=== PATIENT | female | born 2000 | race Caucasian/White ===

== ENCOUNTER 2022-02-06 05:30 | Inpatient (IN) | payer BC ==
[2022-02-09] MEDS ORDERED: Ibuprofen 800 MG TAB PO PRN (12:02)
[2022-02-09] MEDS ORDERED: Ondansetron PF 4 MG/2 ML Vial IVP PRN (12:02)
[2022-02-09] MEDS ORDERED: Lidocaine 1% (PF) 30 ML VIAL SC PRN (12:02)
[2022-02-09] MEDS ORDERED: hydrALAZINE 20 MG/ML VIAL SLOW IVP PRN (12:02)
[2022-02-09] MEDS ORDERED: HYDROcodone/Acetaminophen 5/325 mg Tablet PO PRN ×2 (12:02)
[2022-02-09] MEDS ORDERED: Promethazine HCl 25 MG/ML VIAL IM PRN (12:02)
[2022-02-09] MEDS ORDERED: Butorphanol Tartrate 1 MG/ML VIAL SLOW IVP PRN (12:02)
[2022-02-09] MEDS ORDERED: Misoprostol 200 MCG TAB PR PRN (12:02)
[2022-02-09] MEDS ORDERED: NS w/ Oxytocin 30 units 500 ML IV SCH ×2 (12:15)
[2022-02-09] MEDS ORDERED: Lactated Ringer's 1,000 ML IV SCH (12:15)
[2022-02-10] MEDS ORDERED: Penicillin G Potassium 5 MILL.UNITS in Sodium Chloride 0.9% 100 ML IVPB SCH (05:30)
[2022-02-10 05:40] VITALS: BMI 25.0
[2022-02-10] MEDS ORDERED: Bupivacaine/Epinephrine 0.25% 30 ML VIAL ONE (06:00)
[2022-02-10 06:11] LABS: Hemoglobin 11.7 g/dL (12.0-15.5); Mean Corpuscular HGB CONC 35.5 g/dL (32.0-36.0); Mean Corpuscular Hemoglobin 32.9 pg (27.0-33.0); Mean Corpuscular Volume 92.7 fl (81.6-98.3); Mean Platelet Volume 11.1 fl (7.4-10.4); Platelet Count 268 10x3/uL (150-450); RBC Distribution Width 12.8 % (11.5-14.5); Red Blood Cell (RBC) Count 3.56 10x6/uL (3.90-5.03); White Blood Cell (WBC) Count 7.3 10x3/uL (3.5-10.5)
[2022-02-10 06:46] LABS: HBSAg Index 0.21 S/CO (0-0.99); Hep B Surf Ag Non-Reactive S/CO (NonReactive)
[2022-02-10 06:47] LABS: Syphilis Antibody Nonreactive (Nonreactive); Syphilis Antibody Index 0.05 S/CO (<1.00 Non-Reactive)
[2022-02-10] MEDS ORDERED: Fentanyl 2 mcg/Bup 0.1% Cadd 100 ML ONE (08:44)
[2022-02-10] MEDS ORDERED: Promethazine HCl 25 MG/ML VIAL IM PRN (09:35)
[2022-02-10] MEDS ORDERED: Acetaminophen 325 MG TAB PO PRN (09:35)
[2022-02-10] MEDS ORDERED: Naloxone HCl 0.4 mg/ml Vial IVP PRN ×2 (09:35)
[2022-02-10] MEDS ORDERED: diphenhydrAMINE 50 MG/ML VIAL IVP PRN (09:35)
[2022-02-10] MEDS ORDERED: Ondansetron PF 4 MG/2 ML Vial IVP PRN (09:35)
[2022-02-10] MEDS ORDERED: Lactated Ringer's 500 ML IV PRN (09:35)
[2022-02-10] MEDS ORDERED: Moisturizing Cream (Eucerin) 113 GM JAR TOP PRN (09:35)
[2022-02-10] MEDS ORDERED: ePHEDrine Sulfate 50 MG/10 ML VIAL SLOW IVP PRN (09:35)
[2022-02-10] MEDS ORDERED: Fentanyl 2 mcg/Bupivacaine 0.1% Cassette 100 ML EPIDURAL SCH (09:45)
[2022-02-10] MEDS ORDERED: Communication Order-Pharmacy FS SCH (09:45)
[2022-02-10 10:29] LABS: SARS-CoV-2 NAA Rapid Test Not Detected (NotDetected)
[2022-02-10] MEDS: Penicillin G 2.5 MILL.units 2.5 MILL.UNITS in Premix Bag 1 BAG IVPB SCH ×3 (11:11→22:11)
[2022-02-10] MEDS ORDERED: HYDROcodone/Acetaminophen 5/325 mg Tablet PO PRN ×2 (20:13)
[2022-02-10] MEDS ORDERED: NS w/ Oxytocin 30 units 500 ML IV SCH (20:13)
[2022-02-10] MEDS ORDERED: Lanolin Ointment 7 GM TUBE TOP PRN (20:13)
[2022-02-10] MEDS ORDERED: Milk Of Magnesia 30 ML UDCUP PO PRN (20:13)
[2022-02-10] MEDS ORDERED: Misoprostol 200 MCG TAB VAG PRN (20:13)
[2022-02-10] MEDS ORDERED: Boostrix 0.5 ML (Tdap) VIAL (>/=7 yrs of age) IM ONE (20:13)
[2022-02-10] MEDS ORDERED: hydrALAZINE 20 MG/ML VIAL SLOW IVP PRN (20:13)
[2022-02-10] MEDS ORDERED: Bisacodyl 10 MG SUPP PR PRN (20:13)
[2022-02-10] MEDS ORDERED: Benzocaine-Menthol 82.5 ML CAN TOP PRN (20:13)
[2022-02-10] MEDS: Docusate 100 MG CAP PO SCH (22:50)
[2022-02-10] MEDS: Ibuprofen 800 MG TAB PO SCH (22:50)
[2022-02-11] MEDS: Ibuprofen 800 MG TAB PO SCH ×3 (05:45→21:22)
[2022-02-11] MEDS: Ferrous Sulfate 325 MG TAB PO SCH ×2 (08:04→16:48)
[2022-02-11] MEDS: Prenatal Vitamin 1 TAB PO SCH (09:14)
[2022-02-11] MEDS: Docusate 100 MG CAP PO SCH ×2 (09:14→21:22)
[2022-02-11 20:05] VITALS: TEMP 97.5
[2022-02-12] MEDS: Ibuprofen 800 MG TAB PO SCH (05:21)
[2022-02-12 08:04] VITALS: BP 98/53
[2022-02-12] MEDS: Ferrous Sulfate 325 MG TAB PO SCH (08:14)
[2022-02-12] MEDS: Prenatal Vitamin 1 TAB PO SCH (08:18)
[2022-02-12] MEDS: Docusate 100 MG CAP PO SCH (08:18)
== END 2022-02-12 12:30 | disposition home or self-care (01) | DRG 807 ==
LOC: CSHLD 02-09 12:02 → UNDOADMIN 02-10 05:12 → CSHPP 02-10 21:44 → CSHLD 02-10 21:44
PROVIDERS: ADMIT Obstetrics & Gynecology; ATTEND Obstetrics & Gynecology
PROC: 10E0XZZ Delivery of Products of Conception, External Approach (ICD-10-PCS; principal; 2022-02-10)
DX: O36.5930 Maternal care for other known or suspected poor fetal growth, third trimester, not applicable or unspecified (principal); Z37.0 Single live birth; Z20.822 Contact with and (suspected) exposure to COVID-19; O99.824 Streptococcus B carrier state complicating childbirth; Z3A.38 38 weeks gestation of pregnancy; O32.8XX0 Maternal care for other malpresentation of fetus, not applicable or unspecified; O76 Abnormality in fetal heart rate and rhythm complicating labor and delivery
CPT/HCPCS: 36415; 51702; 85027; 86780; 86850; 86900; 86901; 87340; J2405; J2540; J2590; J3490; U0002